=== PATIENT | male | born 1945 | race Caucasian/White ===

== ENCOUNTER 2020-03-30 12:36 | Day surgery (SDC) | payer MEDICARE, MEDICAID ==
[2020-03-25 12:35] LABS: BASOPHILS # (AUTO) 0.1 X10'3 (0-0.2); BASOPHILS % (AUTO) 1.2 % (0-1); EOSINOPHILS # (AUTO) 0.2 X10'3 (0-0.9); HEMATOCRIT 44.3 % (42.0-52.0); HEMOGLOBIN 14.5 g/dl (14.0-17.9); LYMPHOCYTES # (AUTO) 1.1 X10'3 (1.1-4.8); LYMPHOCYTES % (AUTO) 18.8 % (21-51); MEAN CORPUSCULAR HEMOGLOBIN 30.1 PG (27.0-31.0); MEAN CORPUSCULAR HGB CONC 32.7 g/dL (33.0-36.5); MEAN CORPUSCULAR VOLUME 91.9 FL (78-98); MEAN PLATELET VOLUME 8.2 FL (7.4-10.4); MONOCYTES # (AUTO) 0.6 X10'3 (0-0.9); MONOCYTES % (AUTO) 9.5 % (2-12); NEUTROPHILS # (AUTO) 4.1 X10'3 (1.8-7.7); NEUTROPHILS % (AUTO) 67.5 % (42-75); PLATELET COUNT 222 X10'3 (140-440); RED BLOOD COUNT 4.83 X10'6 (4.70-6.10); RED CELL DISTRIBUTION WIDTH 14.4 % (11.5-14.5); WHITE BLOOD COUNT 6.1 X10'3 (4.5-11.0)
[2020-03-25 12:43] LABS: ALBUMIN 4.2 G/DL (3.4-5.0); ANION GAP 12 (8-16); BLOOD UREA NITROGEN 12 MG/DL (7-18); BUN/CREATININE RATIO 12.2 (5.4-32.0); CALCIUM 8.7 MG/DL (8.5-10.1); CHLORIDE 101 MMOL/L (99-107); CREATININE 0.98 MG/DL (0.60-1.10); GLUCOSE 112 MG/DL (70-104); POTASSIUM 4.4 MMOL/L (3.5-5.1); SODIUM 136 MMOL/L (135-145); TOTAL CARBON DIOXIDE 23.4 MMOL/L (24-32); eGFR 75 ML/MIN
[2020-03-25 12:47] LABS: PARTIAL THROMBOPLASTIN TIME 31 SECONDS (22-32)
[~2020-03-30] VITALS: Ht 167.6 cm; Wt 93.5 kg
[2020-03-30 12:54] VITALS: BP 127/71
[2020-03-30] MEDS ORDERED: normal saline 1,000 ML IV SCH (13:05)
[2020-03-30] MEDS ORDERED: LORazepam 0.5 MG tablet PO PRN (13:05)
[2020-03-30] MEDS ORDERED: diphenhydrAMINE 25mg capsule PO PRN (13:05)
[2020-03-30] MEDS ORDERED: CLOP75TA34 PO (13:33)
[2020-03-30] MEDS ORDERED: ATOR40TA PO (13:33)
[2020-03-30] MEDS ORDERED: FISH1CAP15 PO (13:33)
[2020-03-30] MEDS ORDERED: FERR324T PO (13:33)
[2020-03-30] MEDS ORDERED: APIX5TAB3 PO (13:33)
[2020-03-30] MEDS ORDERED: AMLO2.5T5 PO (13:33)
[2020-03-30] MEDS ORDERED: ESCI10TA66 PO (13:33)
[2020-03-30] MEDS ORDERED: LORA-269 PO (13:33)
[2020-03-30] MEDS ORDERED: CHOL20003 PO (13:33)
[2020-03-30] MEDS ORDERED: TELM80TA9 PO (13:33)
[2020-03-30] MEDS ORDERED: MULT-1085 PO (13:33)
[2020-03-30] MEDS ORDERED: ACET-1084 PO (13:33)
[2020-03-30] MEDS ORDERED: heparin 1,000unit/ml 10ml vial 10 ML ONE (16:52)
[2020-03-30] MEDS ORDERED: fentaNYL/PF 50MCG/1 ML 2ML syringe ONE (16:52)
[2020-03-30] MEDS ORDERED: LIDOcaine 1% (10mg/ml)w/preservative injection 20ml MDV ONE (16:52)
[2020-03-30] MEDS ORDERED: midazolam 2 mg/2 ml injection ONE (16:52)
[2020-03-30] MEDS ORDERED: iohexol 350MG/ML 100ml bottle IV ONE (16:52)
[2020-03-30] MEDS ORDERED: nitroGLYCERIN-Tridil 50MG/D5W 250 ML IV ONE (16:58)
[2020-03-30 17:25] VITALS: BP 125/80
[2020-03-30 17:40] VITALS: BP 114/71
[2020-03-30] MEDS ORDERED: proCHLORperazine 10 MG/2 ml inj IV PRN (17:50)
[2020-03-30] MEDS ORDERED: OXAZEpam 15mg capsule PO PRN (17:50)
[2020-03-30] MEDS ORDERED: ondansetron/PF 4mg/2ml inj IV PRN (17:50)
[2020-03-30] MEDS ORDERED: nitroGLYCERIN 0.4mg SUBLingual tab SL PRN (17:50)
[2020-03-30 17:56] VITALS: BP 103/66
[2020-03-30 18:25] VITALS: BP 101/67
[2020-03-30 19:18] VITALS: BP 100/63
== END 2020-03-30 19:40 | disposition home or self-care (01) ==
LOC: SSTAY O 12:36
PROVIDERS: ATTEND Internal Medicine Interventional Cardiology
DX: I35.0 Nonrheumatic aortic (valve) stenosis (principal); I25.10 Atherosclerotic heart disease of native coronary artery without angina pectoris; I10 Essential (primary) hypertension; I48.91 Unspecified atrial fibrillation; E78.5 Hyperlipidemia, unspecified; Z95.0 Presence of cardiac pacemaker; Z79.899 Other long term (current) drug therapy; Z79.01 Long term (current) use of anticoagulants; Z87.891 Personal history of nicotine dependence
CPT/HCPCS: 36415; 80048; 85025; 85610; 85730; 93005; 93454; C1769; C1894; J1644; J2001; J2250; J3010; J7030; Q0163; Q9967; 99152; A4620; J3490

== ENCOUNTER 2020-04-20 10:01 | Outpatient (CLI) | payer MEDICARE, MEDICAID ==
[~2020-04-20 10:01] MED LIST: ACET-1084 PO; AMLO2.5T5 PO; APIX5TAB3 PO; ATOR40TA PO; CHOL20003 PO; CLOP75TA34 PO; ESCI-8 PO; FERR324T PO; FISH1CAP15 PO; LORA-269 PO; MULT-1085 PO; TELM80TA9 PO
[2020-04-20] MEDS ORDERED: iohexol 350 MG/ML 50ML vial IV ONE (10:50)
[2020-04-20] MEDS ORDERED: iohexol 350MG/ML 100ml bottle IV ONE (10:50)
[2020-04-20] MEDS ORDERED: metoprolol tartrate 1mg/ml inj IV ONE ×2 (11:49→12:03)
== END 2020-04-20 23:59 | disposition home or self-care (01) ==
LOC: 64 CT 10:01
PROVIDERS: ATTEND Internal Medicine Cardiovascular Disease
DX: J44.9 Chronic obstructive pulmonary disease, unspecified (principal); I25.10 Atherosclerotic heart disease of native coronary artery without angina pectoris; I51.7 Cardiomegaly; I70.0 Atherosclerosis of aorta; E04.2 Nontoxic multinodular goiter; I35.0 Nonrheumatic aortic (valve) stenosis; I65.29 Occlusion and stenosis of unspecified carotid artery; M47.819 Spondylosis without myelopathy or radiculopathy, site unspecified; Z20.822 Contact with and (suspected) exposure to COVID-19
CPT/HCPCS: 36415; 71046; 71275; 74174; 87635; 94010; 94727; 94729; Q9967; J3490

== ENCOUNTER 2020-04-22 14:13 | Outpatient (CLI) | payer MEDICARE, MEDICAID ==
[2020-04-20 11:52] VITALS: BP 123/75
[2020-04-20 12:02] VITALS: BP 113/70
[2020-04-20 12:12] VITALS: BP 108/70
[2020-04-20 12:13] VITALS: BP 111/73
[~2020-04-22] VITALS: Ht 167.6 cm; Wt 93.4 kg
[2020-04-22 17:33] VITALS: BP 148/84
--- NOTE | 2020-04-22 17:34 | NUR ---
Patient and his were in the [facility] today to consult with Dr. Bingham and Dr. Bazan. KCQ12 completed. Walk test completed. Vital signs measured. Patient education reviewed and questions answered.
[2020-05-07] MEDS ORDERED: CLOP75TA34 PO (08:42)
== END 2020-04-22 23:59 | disposition home or self-care (01) ==
LOC: TAVR 14:13
PROVIDERS: ATTEND Internal Medicine Cardiovascular Disease
DX: I35.0 Nonrheumatic aortic (valve) stenosis (principal); R06.02 Shortness of breath; I65.29 Occlusion and stenosis of unspecified carotid artery; I48.91 Unspecified atrial fibrillation

== ENCOUNTER 2022-09-25 17:22 | Inpatient (IN) | payer MEDICARE, MEDICAID ==
[~2022-09-25] VITALS: Ht 170.2 cm; Wt 109.1 kg
[~2022-09-25 17:22] MED LIST changes: -ACET-1084 PO
[2022-09-25 20:31] LABS: BASOPHILS # (AUTO) 0.1 X10'3 (0-0.2); BASOPHILS % (AUTO) 0.8 % (0-1); EOSINOPHILS # (AUTO) 0.1 X10'3 (0-0.9); EOSINOPHILS % (AUTO) 0.8 % (0-6); HEMATOCRIT 48.8 % (42.0-52.0); HEMOGLOBIN 16.2 g/dl (14.0-17.9); LYMPHOCYTES # (AUTO) 1.6 X10'3 (1.1-4.8); LYMPHOCYTES % (AUTO) 16.2 % (21-51); MEAN CORPUSCULAR HEMOGLOBIN 30.7 PG (27.0-31.0); MEAN CORPUSCULAR HGB CONC 33.2 g/dL (33.0-36.5); MEAN CORPUSCULAR VOLUME 92.7 FL (78-98); MEAN PLATELET VOLUME 8.2 FL (7.4-10.4); MONOCYTES # (AUTO) 0.7 X10'3 (0-0.9); MONOCYTES % (AUTO) 7.3 % (2-12); NEUTROPHILS # (AUTO) 7.3 X10'3 (1.8-7.7); NEUTROPHILS % (AUTO) 74.9 % (42-75); PLATELET COUNT 292 X10'3 (140-440); RED BLOOD COUNT 5.27 X10'6 (4.70-6.10); WHITE BLOOD COUNT 9.8 X10'3 (4.5-11.0)
[2022-09-25 20:45] LABS: ALANINE AMINOTRANSFERASE 42 U/L (12-78); ALBUMIN 4.7 G/DL (3.4-5.0); ALBUMIN/GLOBULIN RATIO 1.3 (1.1-1.5); ALKALINE PHOSPHATASE 125 IU/L (46-116); ANION GAP 13 (8-16); ASPARTATE AMINO TRANSFERASE 28 U/L (10-37); BILIRUBIN,TOTAL 1.5 MG/DL (0.1-1.0); BLOOD UREA NITROGEN 28 MG/DL (7-18); BUN/CREATININE RATIO 15.4 (10.0-20.0); CALCIUM 9.8 MG/DL (8.5-10.1); CHLORIDE 98 MMOL/L (99-107); CREATININE 1.82 MG/DL (0.60-1.10); GLUCOSE 130 MG/DL (70-104); POTASSIUM 5.3 MMOL/L (3.5-5.1); SODIUM 133 MMOL/L (135-145); TOTAL CARBON DIOXIDE 22.4 MMOL/L (24-32); TOTAL PROTEIN 8.3 G/DL (6.4-8.2); eCRCL 32 ML/MIN; eGFR 36 ML/MIN
[2022-09-25] MEDS ORDERED: normal saline 1000ML IV soln IVB ONE (21:00)
[2022-09-25] MEDS ORDERED: acetaminophen 325mg tablet PO PRN ×2 (22:40)
[2022-09-25] MEDS ORDERED: magnesium hydroxide 30ml (MOM) UD suspension PO PRN (22:40)
[2022-09-25] MEDS ORDERED: ondansetron/PF 4mg/2ml inj IV PRN (22:40)
[2022-09-25] MEDS ORDERED: morphine 2 MG/ML inj. syringe IV PRN ×2 (22:40)
[2022-09-25] MEDS ORDERED: mag hydrox/Alum hydrox/simeth 30ml oral suspension PO PRN (22:40)
[2022-09-25] MEDS ORDERED: HYDROcodone/acetaminophen 5mg/325mg tablet PO PRN (22:40)
[2022-09-25] MEDS: normal saline 1000ml 1,000 ML IV SCH (22:53)
[2022-09-26] MEDS ORDERED: CLOP75TA34 PO (00:34)
--- NOTE | 2022-09-26 01:40 | NUR ---
PT PLACED ONTO INPATIENT BED
[2022-09-26 04:35] LABS: BILIRUBIN,URINE NEGATIVE (Neg); CLARITY,URINE CLEAR (Clear); COLOR,URINE YELLOW (Yellow); GLUCOSE, URINE NEGATIVE (Neg); KETONES,URINE TRACE mg/dl (Neg); LEUKOCYTE ESTERASE ,URINE NEGATIVE (Neg); NITRITES, URINE NEGATIVE (Neg); OCCULT BLOOD,URINE NEGATIVE (Neg); PH,URINE 5.5 (4.8-8.0); PROTEIN,URINE NEGATIVE (Neg); UROBILINOGEN,URINE 0.2 E.U/dL (0.2-1.0)
[2022-09-26 04:39] LABS: UA COLLECTION TYPE URINAL
--- NOTE | 2022-09-26 06:31 | NUR ---
TRIED TO CALL REPORT, NANDO WAS BUSY GETTING REPORT. SHE WILL CALL ME BACK.
[2022-09-26] MEDS ORDERED: LORazepam 1 MG tablet PO PRN (06:45)
[2022-09-26 07:17] LABS: BASOPHILS # (AUTO) 0.1 X10'3 (0-0.2); BASOPHILS % (AUTO) 0.7 % (0-1); EOSINOPHILS # (AUTO) 0.1 X10'3 (0-0.9); EOSINOPHILS % (AUTO) 1.2 % (0-6); HEMATOCRIT 43.1 % (42.0-52.0); HEMOGLOBIN 14.3 g/dl (14.0-17.9); LYMPHOCYTES # (AUTO) 2.2 X10'3 (1.1-4.8); LYMPHOCYTES % (AUTO) 25.8 % (21-51); MEAN CORPUSCULAR HEMOGLOBIN 30.8 PG (27.0-31.0); MEAN CORPUSCULAR HGB CONC 33.2 g/dL (33.0-36.5); MEAN CORPUSCULAR VOLUME 92.7 FL (78-98); MONOCYTES # (AUTO) 0.7 X10'3 (0-0.9); MONOCYTES % (AUTO) 8.6 % (2-12); NEUTROPHILS # (AUTO) 5.4 X10'3 (1.8-7.7); NEUTROPHILS % (AUTO) 63.7 % (42-75); PLATELET COUNT 225 X10'3 (140-440); RED BLOOD COUNT 4.65 X10'6 (4.70-6.10); WHITE BLOOD COUNT 8.4 X10'3 (4.5-11.0)
[2022-09-26 07:20] VITALS: BP 154/92; PULSE 88; RESP 14; TEMP 98; O2SAT 98
[2022-09-26 07:30] VITALS: RESP 18
[2022-09-26 07:45] LABS: ALBUMIN 3.7 G/DL (3.4-5.0); ANION GAP 8 (8-16); BLOOD UREA NITROGEN 25 MG/DL (7-18); BUN/CREATININE RATIO 18.2 (10.0-20.0); CALCIUM 8.6 MG/DL (8.5-10.1); CHLORIDE 103 MMOL/L (99-107); CREATININE 1.37 MG/DL (0.60-1.10); GLUCOSE 79 MG/DL (70-104); POTASSIUM 4.3 MMOL/L (3.5-5.1); PRO BRAIN NATRIURETIC PEPTIDE 318 PG/ML (0-450); SODIUM 134 MMOL/L (135-145); TOTAL CARBON DIOXIDE 23.4 MMOL/L (24-32); eCRCL 42 ML/MIN; eGFR 50 ML/MIN
[2022-09-26] MEDS ORDERED: amLODIPine 2.5mg tablet PO SCH (08:00)
[2022-09-26] MEDS ORDERED: apixaban 5mg tablet PO SCH (08:00)
[2022-09-26] MEDS ORDERED: docusate sod 100mg capsule PO SCH (08:00)
[2022-09-26] MEDS ORDERED: atorvastatin 20mg tablet PO SCH (08:00)
[2022-09-26] MEDS ORDERED: multivitamins, therapeutics tablet PO SCH (08:00)
[2022-09-26] MEDS ORDERED: cholecalciferol (vitamin D3) 1,000 unit (25mcg) tablet PO SCH (08:00)
[2022-09-26] MEDS ORDERED: ESCITALOPRAM OXALATE 5 MG TABLET PO SCH (08:00)
[2022-09-26] MEDS ORDERED: clopidogrel 75mg tablet PO SCH (08:00)
[2022-09-26] MEDS ORDERED: losartan 50mg tablet PO SCH (08:00)
[2022-09-26] MEDS: normal saline 1000ml 1,000 ML IV SCH (10:17)
[2022-09-26 10:26] VITALS: BP_SYST 115; BP_SYST 124; BP_SYST 129; BP_DIAS 62; BP_DIAS 63; BP_DIAS 78; PULSE 74; PULSE 86; PULSE 92
[2022-09-26 11:00] VITALS: BP 114/79; PULSE 97; RESP 17; TEMP 98.4; O2SAT 96
[2022-09-26 12:04] VITALS: BP_SYST 114
--- NOTE | 2022-09-26 12:30 | NUR ---
Med rec is not correct per . sherrie given this am. Patient will take other routine meds at home.
== END 2022-09-26 12:15 | disposition home or self-care (01) | DRG 640 ==
LOC: ER 17:23 → ED HOLD 22:41 → ORTHO 4S 09-26 07:15
PROVIDERS: ADMIT Internal Medicine; ATTEND Internal Medicine
DX: E86.0 Dehydration (principal); N17.0 Acute kidney failure with tubular necrosis; I10 Essential (primary) hypertension; I25.10 Atherosclerotic heart disease of native coronary artery without angina pectoris; I48.0 Paroxysmal atrial fibrillation; R03.0 Elevated blood-pressure reading, without diagnosis of hypertension; E78.5 Hyperlipidemia, unspecified; Z79.01 Long term (current) use of anticoagulants; Z79.899 Other long term (current) drug therapy; Z95.2 Presence of prosthetic heart valve; Z95.1 Presence of aortocoronary bypass graft; Z87.891 Personal history of nicotine dependence; Z80.9 Family history of malignant neoplasm, unspecified; F32.A Depression, unspecified
CPT/HCPCS: 36415; 71045; 80048; 80053; 81003; 83605; 83735; 83880; 84145; 84484; 85025; 87040; 99285; G0378; J7030